=== PATIENT | male | born 1990 | race Caucasian/White ===

== ENCOUNTER 2018-07-11 09:47 | Emergency (ER) | payer OTHER ==
[2018-07-11 09:53] VITALS: BP 136/89; PULSE 75; RESP 18; TEMP 98.1
[2018-07-11] MEDS ORDERED: LIDOCAINE 1% INJ 10MG/ML (20 ML MDV) SQ STA (09:59)
--- NOTE | 2018-07-11 10:22 | ED ---
General Adult HPI - General Chief complaint: Wound/Laceration Stated complaint: [facility] - left hand laceration Time Seen by Provider: 07/11/18 09:53 Source: patient, RN notes reviewed Mode of arrival: ambulatory Limitations: no limitations - History of Present Illness Initial comments: Patient 28-year-old male presented to the emergency room today with a chief complaint of laceration to the left fifth digit. Patient does not that he was at work he was using a knife to cut apart 2 pieces of meat when the knife slipped and he did accidentally cut himself. He does admit that the blade went through the fifth digit. He states his tetanus is up-to-date. Patient states he has full range of motion. He denies any other complaints. - Related Data Previous Rx's Medication Instructions Recorded Cephalexin [Keflex] 500 mg PO Q12HR 10 Days cap 07/11/18 Allergies Allergy/AdvReac Type Severity Reaction Status Date / Time No Known Allergies Allergy Verified 07/11/18 09:52 Review of Systems ROS Statement: Those systems with pertinent positive or pertinent negative responses have been documented in the HPI. ROS Other: All systems not noted in ROS Statement are negative. Past Medical History Past Medical History: No Reported History History of Any Multi-Drug Resistant Organisms: None Reported Past Surgical History: Orthopedic Surgery Past Psychological History: No Psychological Hx Reported Smoking Status: Current every day smoker Past Alcohol Use History: None Reported Past Drug Use History: None Reported General Exam - General Exam Comments Initial Comments: General: The patient is awake and alert, in no distress, and does not appear acutely ill. . Musculoskeletal: Normal ROM, no tenderness. Strength 5/5. Sensation intact. Pulses equal bilaterally 2+. Neurological: A&O x 3. CN II-XII intact, There are no obvious motor or sensory deficits. Coordination appears grossly intact. Speech is normal. Skin: Patient does have laceration to both volar and posterior aspect of the left fifth digit. Mild venous oozing. Sensations are intact. Radial pulses 2+ . Psychiatric: Cooperative, appropriate mood & affect, normal judgment. Limitations: no limitations Course Vital Signs 07/11/18 09:50 Temperature 98.1 F Pulse Rate 75 Respiratory 18 Rate Blood Pressure 136/89 O2 Sat by Pulse 98 Oximetry Procedures - Procedures Initial comment: First laceration located to the volar aspect of the left fifth digit measured approximately 3.5 cm in total length. The skin was anesthetized with 1% lidocaine. The laceration was then cleansed with Betadine and irrigated with normal saline. The wound was inspected, and there was no evidence of injury to deep structures. No foreign body was noted in the wound. A total of 9 skin sutures were placed utilizing 4-0 nylon. Second laceration located to the posterior aspect of the left fifth digit measured approximately 2.5 cm in total length. The skin was anesthetized with 1 % lidocaine. The laceration was then cleansed with Betadine and irrigated with normal saline. The wound was inspected, and there was no evidence of injury to deep structures. No foreign body was noted in the wound. A total of 7 skin sutures were placed utilizing 4-0 nylon. Third laceration located to the volar aspect of the third distal digit measured approximately 1.5 cm in total length. The skin was anesthetized with 1% lidocaine. The laceration was then cleansed with Betadine and irrigated with normal saline. The wound was inspected, and there was no evidence of injury to deep structures. No foreign body was noted in the wound. A total of 3 skin sutures were placed utilizing 4-0 nylon. Fourth laceration located at the volar aspect of the second distal digit of the left hand measured approximately 1.5 total length. Laceration cleaned and irrigated with saline. Wound edges were approximated and closed with topical adhesive. Medical Decision Making - Medical Decision Making X-ray reviewed negative for any acute abnormality. Results discussed with the patient. Patient's wound edges were clean closed here in emergency room. Patient's tetanus is up-to-date. Will be started on antibiotic to cover for infection prophylactically. He is advised to keep area clean and return in 8- 10 days to have sutures removed. Disposition Clinical Impression: Laceration of multiple sites of hand and fingers Disposition: HOME SELF-CARE Condition: Good Instructions: Laceration (ED) Additional Instructions: Please return to the emergency room in 8-10 days to have sutures removed. Please watch for any signs of infection which may include increased pain, swelling, redness, fever or chills. Please return to emergency room for any signs of infection do occur. Please use clean soap and water over the area to prevent scabbing over your stitches. Please leave wound covered for the first 24-48 hours and then leave wound open to air. Please return to the emergency room for any other concerns. Prescriptions: Cephalexin [Keflex] 500 mg PO Q12HR 10 Days cap Is patient prescribed a controlled substance at d/c from ED?: No Referrals: None,Stated [Primary Care Provider] - 1-2 days Time of Disposition: 11:03
--- NOTE | 2018-07-11 10:34 | XR ---
EXAMINATION TYPE: XR hand complete LT , 3 VIEWS DATE OF EXAM ORDERED: 07/11/2018 HISTORY: Laceration. COMPARISON: None. FINDINGS: There is evidence of a laceration of the distal phalanx of the left third digit. No fractu re, dislocation or radiopaque foreign body is seen. IMPRESSION: LACERATION.
[2018-07-11] MEDS ORDERED: TOPICAL SKIN ADHESIVE 1 EACH AMP TOPICAL ONE (11:26)
== END 2018-07-11 11:37 | disposition home or self-care (01) ==
LOC: EC 09:47
DX: S61.217A Laceration without foreign body of left little finger without damage to nail, initial encounter (principal); S61.213A Laceration without foreign body of left middle finger without damage to nail, initial encounter; S61.211A Laceration without foreign body of left index finger without damage to nail, initial encounter; F17.200 Nicotine dependence, unspecified, uncomplicated; W26.0XXA Contact with knife, initial encounter; Y93.G3 Activity, cooking and baking; Y92.69 Other specified industrial and construction area as the place of occurrence of the external cause; Y99.0 Civilian activity done for income or pay
CPT/HCPCS: 73130; 99283; 12004; J2001

== ENCOUNTER 2018-07-20 14:03 | Emergency (ER) | payer OTHER ==
[2018-07-20 14:22] VITALS: RESP 18
[2018-07-20] MEDS ORDERED: SODIUM CHLORIDE 0.9% 1,000 ML IV STA (15:13)
[2018-07-20] MEDS ORDERED: VANCOMYCIN IV PER PHARMACY 1 EACH MISC MISCELLANE PRN (15:32)
--- NOTE | 2018-07-20 15:32 | XR ---
EXAMINATION TYPE: XR hand complete LT DATE OF EXAM: 07/20/2018 CLINICAL HISTORY: Pain and infection fifth finger. TECHNIQUE: Frontal, lateral and oblique images of the left hand are obtained. COMPARISON: Left hand x-ray 9 days ago. FINDINGS: There is no acute fracture/dislocation evident in the left hand. The joint spaces in the l eft hand remain within normal limits. No new suspicious cortical destruction or periosteal reaction is seen. There is new mild to moderate soft tissue swelling fifth finger centered at fifth proximal p halanx. IMPRESSION: New soft tissue swelling fifth finger without cortical destruction.
[2018-07-20] MEDS ORDERED: VANCOMYCIN 1,750 MG in SODIUM CHLORIDE 0.9% 500 ML 500 ML IVPB ONE (16:00)
[2018-07-20] MEDS ORDERED: PIPERACILLIN-TAZOBACTAM 3.375 GM in SODIUM CHLORIDE 0.9% 100 ML IVPB ONE (16:00)
[2018-07-20 16:20] LABS: Basophils # (A) 0.1 k/uL (0-0.2); Basophils % (A) 1 %; Eosinophils # (A) 0.3 k/uL (0-0.7); Eosinophils % (A) 3 %; HCT 43.4 % (39.0-53.0); HGB 15.1 gm/dL (13.0-17.5); Lymphocytes % (A) 23 %; MCH 31.2 pg (25.0-35.0); MCHC 34.9 g/dL (31.0-37.0); MCV 89.4 fL (80.0-100.0); Mean Platelet Volume 6.9; Monocytes # (A) 0.5 k/uL (0-1.0); Monocytes % (A) 6 %; Neutrophils # (A) 5.8 k/uL (1.3-7.7); Neutrophils % (A) 66 %; Platelet Count 229 k/uL (150-450); RBC 4.85 m/uL (4.30-5.90); RDW 13.1 % (11.5-15.5); WBC 8.9 k/uL (3.8-10.6)
[2018-07-20 16:27] LABS: ALT 29 U/L (21-72); AST 30 U/L (17-59); Albumin 4.2 g/dL (3.5-5.0); Alkaline Phosphatase 58 U/L (38-126); Anion Gap 6 mmol/L; Blood Urea Nitrogen 12 mg/dL (9-20); Carbon Dioxide 26 mmol/L (22-30); Chloride 106 mmol/L (98-107); Glucose 86 mg/dL (74-99); Potassium 3.9 mmol/L (3.5-5.1); Sodium 138 mmol/L (137-145); Total Bilirubin 0.7 mg/dL (0.2-1.3); Total Protein 7.1 g/dL (6.3-8.2)
--- NOTE | 2018-07-20 18:28 | ED ---
General Adult HPI - General Chief complaint: Wound/Laceration Stated complaint: INFECTED SUTURE Time Seen by Provider: 07/20/18 14:31 Source: patient, RN notes reviewed, old records reviewed Limitations: no limitations - History of Present Illness Initial comments: 28-year-old male patient no pertinent past medical history presents to ED for potential infection on fifth digit of left hand. Patient reports that approximately 9 days ago presents to the ER after sustaining a laceration with a knife. Patient had a laceration with a steward/stewardess club car knife that passed through the soft tissue of his fifth digit on his left hand. Patient did not have any suspected ligament or osseous involvement. The wound was closed primarily. Patient has been taking Keflex twice a day since the injury. Patient reports that the last 2 days he began to develop some erythema at the MCP joint on the flexor aspect of the fifth digit. Patient states that the erythema has no spread up to the PIP joint of the fifth digit of his left hand. Patient also reports that he had some purulent drainage from the sutures after he squeezed his finger. Patient does still have full range of motion of his finger. Patient denies any fevers or chills at home. Patient denies any nausea vomiting diarrhea at home. Patient denies other complaints. Systemic: Pt denies fatigue, myalgia, fever/chills, rash. Pt denies weakness, night sweats, weight loss. Neuro: Pt denies headache, visual disturbances, syncope or pre-syncope. HEENT: Pt denies ocular discharge or irritation, otalgia, rhinorrhea, pharyngitis or notable lymphadenopathy. Cardiopulmonary: Pt denies chest pain, SOB, heart palpitations, dyspnea on exertion. Abdominal/GI: Pt denies abdominal pain, n/v/d. : Pt denies dysuria, burning w/ urination, frequency/urgency. Denies new onset urinary or bowel incontinence. MSK: Pt denies myalgia, loss of strength or function in extremities. Neuro: Pt denies new onset weakness, paresthesias. - Related Data Previous Rx's Medication Instructions Recorded Cephalexin [Keflex] 500 mg PO Q12HR 10 Days cap 07/11/18 Amoxicillin/Potassium Clav 1 each PO Q12HR #20 tab 07/20/18 [Augmentin 875-125 Tablet] Clindamycin [Cleocin] 450 mg PO Q6H 10 Days capsule 07/20/18 Allergies Allergy/AdvReac Type Severity Reaction Status Date / Time No Known Allergies Allergy Verified 07/20/18 14:22 Review of Systems ROS Statement: Those systems with pertinent positive or pertinent negative responses have been documented in the HPI. ROS Other: All systems not noted in ROS Statement are negative. Past Medical History Past Medical History: No Reported History History of Any Multi-Drug Resistant Organisms: None Reported Past Surgical History: Orthopedic Surgery Past Psychological History: No Psychological Hx Reported Smoking Status: Current every day smoker Past Alcohol Use History: None Reported Past Drug Use History: None Reported General Exam - General Exam Comments Initial Comments: Constitutional: NAD, AOX3, Pt has pleasant affect. HEENT: NC/AT, trachea midline, neck supple, no lymphadenopathy. Posterior pharynx non erythematous, without exudates. External ears appear normal, without discharge. Mucous membranes moist. Eyes PERRLA, EOM intact. There is no scleral icterus. No pallor noted. Cardiopulmonary: RRR, no murmurs, rubs or gallops, no JVD noted. Lungs CTAB in anterior and posterior humphrey. No peripheral edema. Abdominal exam: Abdomen soft and non-distended. Abdomen non-tender to palpation in all 4 quadrants. Bowel sounds active in LLQ. No hepatosplenomegaly. No ecchymosis Neuro: CN II-XII grossly intact. No nuchal rigidity. MSK: Mild amount of erythema noted at the flexor aspect of the MCP joint of the fifth digit of his left hand. Patient has a mild amount of erythema that extends up to the PIP joint of the fifth digit of his left hand. Patient does still have full range of motion of digit. Patient still has sensation of digit. Sutures intact. Patient does not have any tenderness proximal to the MCP joint. No purulent drainage expressed with palpation. Patient not have pain with passive extension, no percussion tenderness, no flexion posture. No posterior calf tenderness bilaterally, homans sign negative bilaterally. Posterior tibialis and radial pulse +2 bilaterally. Sensation intact in upper and lower extremities. Full active ROM in upper and lower extremities, 5/5 stregnth. Limitations: no limitations Course Vital Signs 07/20/18 07/20/18 14:19 18:46 Temperature 98.1 F 99.1 F Pulse Rate 69 74 Respiratory 18 18 Rate Blood Pressure 124/86 129/80 O2 Sat by Pulse 97 96 Oximetry Medical Decision Making - Medical Decision Making 28-year-old male patient no pertinent past medical history presents to ED for potential infection on fifth digit of left hand. Patient reports that approximately 9 days ago presents to the ER after sustaining a laceration with a knife. Patient had a laceration with a steward/stewardess club car knife that passed through the soft tissue of his fifth digit on his left hand. Patient did not have any suspected ligament or osseous involvement. The wound was closed primarily. Patient has been taking Keflex twice a day since the injury. Patient reports that the last 2 days he began to develop some erythema at the MCP joint on the flexor aspect of the fifth digit. Patient states that the erythema has no spread up to the PIP joint of the fifth digit of his left hand. Patient also reports that he had some purulent drainage from the sutures after he squeezed his finger. Pt denies all other symptoms. Pt VSS, afebrile. Laboratory investigations revealed nonpresent CBC, CMP. Blood cultures were obtained. Lactic acid is within normal limits. Plain film of left hand displayed new soft tissue swelling fifth digit without cortical distraction. Patient was started on vancomycin and Zosyn with plan to admit patient for possible early flexor tenosynovitis. Patient stated that he cannot be admitted to hospital due to childcare lapse. Patient received approximately three quarters of dose of vancomycin and Zosyn. Patient was strongly urged to stay in hospital, risks of patient declined treatment included loss of limb or . Patient verbalized understanding. Patient does state that he'll return to ED after his childcare is situated. Patient was prescribed Augmentin and clindamycin. Explained to patient that this is a suboptimal treatment, patient was understanding. Patient was again urged to stay in ER, patient once again declined. Pt referred to orthopedics. Patient signed out the hospital AMA. Case discussed and patient seen by Dr. Cook. - Lab Data Result diagrams: 07/20/18 15:15 07/20/18 15:15 Lab Results 07/20/18 07/20/18 07/20/18 Range/Units 15:15 15:15 15:15 WBC 8.9 (3.8-10.6) k/uL RBC 4.85 (4.30-5.90) m/uL Hgb 15.1 (13.0-17.5) gm/dL Hct 43.4 (39.0-53.0) % MCV 89.4 (80.0-100.0) fL MCH 31.2 (25.0-35.0) pg MCHC 34.9 (31.0-37.0) g/dL RDW 13.1 (11.5-15.5) % Plt Count 229 (150-450) k/uL Neutrophils % 66 % Lymphocytes % 23 % Monocytes % 6 % Eosinophils % 3 % Basophils % 1 % Neutrophils # 5.8 (1.3-7.7) k/uL Lymphocytes # 2.0 (1.0-4.8) k/uL Monocytes # 0.5 (0-1.0) k/uL Eosinophils # 0.3 (0-0.7) k/uL Basophils # 0.1 (0-0.2) k/uL Sodium 138 (137-145) mmol/L Potassium 3.9 (3.5-5.1) mmol/L Chloride 106 (98-107) mmol/L Carbon Dioxide 26 (22-30) mmol/L Anion Gap 6 mmol/L BUN 12 (9-20) mg/dL Creatinine 1.01 (0.66-1.25) mg/dL Est GFR (CKD-EPI)AfAm >90 (>60 ml/min/1.73 sqM) Est GFR (CKD-EPI)NonAf >90 (>60 ml/min/1.73 sqM) Glucose 86 (74-99) mg/dL Plasma Lactic Acid Andrew 1.0 (0.7-2.0) mmol/L Calcium 9.0 (8.4-10.2) mg/dL Total Bilirubin 0.7 (0.2-1.3) mg/dL AST 30 (17-59) U/L ALT 29 (21-72) U/L Alkaline Phosphatase 58 (38-126) U/L Total Protein 7.1 (6.3-8.2) g/dL Albumin 4.2 (3.5-5.0) g/dL Disposition Clinical Impression: Finger infection Disposition: Left Against Medical Advice Condition: Serious Instructions (If sedation given, give patient instructions): Wound Infection ( ED) Prescriptions: Amoxicillin/Potassium Clav [Augmentin 875-125 Tablet] 1 each PO Q12HR #20 tab Clindamycin [Cleocin] 450 mg PO Q6H 10 Days capsule Is patient prescribed a controlled substance at d/c from ED?: No Referrals: None,Stated [Primary Care Provider] - 1-2 days Isreal Sanchez MD [STAFF PHYSICIAN] - 1-2 days
[2018-07-20 18:48] VITALS: BP 129/80; PULSE 74; TEMP 99.1
[2018-07-21] MEDS ORDERED: PIPERACILLIN-TAZOBACTAM 3.375 GM in SODIUM CHLORIDE 0.9% 100 ML IVPB SCH ×2
[2018-07-21] MEDS ORDERED: VANCOMYCIN 1,750 MG in SODIUM CHLORIDE 0.9% 500 ML 500 ML IVPB SCH ×2
== END 2018-07-20 19:10 | disposition left against medical advice (07) ==
LOC: EC 14:03
DX: T81.41XA Infection following a procedure, superficial incisional surgical site, initial encounter (principal); F17.200 Nicotine dependence, unspecified, uncomplicated
CPT/HCPCS: 36415; 80053; 83605; 85025; 87040; 73130; 99284; 96365 ×2; 96366 ×4; 96361; J2543; J3370

== ENCOUNTER 2018-07-21 02:53 | Emergency (ER) | payer OTHER ==
[2018-07-21 03:02] VITALS: BP 167/92; PULSE 73; RESP 18; TEMP 98.3
[2018-07-21] MEDS ORDERED: CEPHALEXIN 500MG STARTER PACK 4 CAP BTL PO STA (03:36)
[2018-07-21] MEDS ORDERED: SULFAMETH-TMP DS STARTER PACK 2 TAB BTL PO STA (03:36)
--- NOTE | 2018-07-21 03:36 | ED ---
Wound/Laceration HPI - General Chief Complaint: Wound/Laceration Stated Complaint: Infection Time Seen by Provider: 07/21/18 03:05 Source: patient Mode of arrival: ambulatory Limitations: no limitations - History of Present Illness Initial Comments: 28-year-old male patient presents to the emergency department today for evaluation of swelling and redness to the left fifth finger. Patient did sustain a laceration to the finger 10 days ago did have sutures placed. Patient presented here earlier today for evaluation, plan was to admit for IV antibiotics however he had social issues that he had to resolved prior to being admitted. He presented back for further evaluation this evening. Patient denies any significant pain to the site. Patient states he did have some purulent drainage from the area earlier in the day. Patient was told to have the sutures removed in 10 days, sutures are still in place. He denies any fevers or chills with this. Denies any nausea or vomiting. Denies any difficulty with range of motion to the finger or hand. Patient denies any headache, neck pain, back pain, chest pain, shortness of breath, dizziness, weakness, abdominal pain, nausea, vomiting, or difficulties with bowel movements or urination. - Related Data Previous Rx's Medication Instructions Recorded Cephalexin [Keflex] 500 mg PO Q6H #40 cap 07/21/18 Sulfamethoxazole/Trimethoprim 1 each PO BID #20 tablet 07/21/18 [Bactrim DS 800-160 mg] Allergies Allergy/AdvReac Type Severity Reaction Status Date / Time No Known Allergies Allergy Verified 07/21/18 03:01 Review of Systems ROS Statement: Those systems with pertinent positive or pertinent negative responses have been documented in the HPI. ROS Other: All systems not noted in ROS Statement are negative. Past Medical History Past Medical History: No Reported History History of Any Multi-Drug Resistant Organisms: None Reported Past Surgical History: Orthopedic Surgery Past Psychological History: No Psychological Hx Reported Smoking Status: Current every day smoker Past Alcohol Use History: None Reported Past Drug Use History: None Reported General Exam Limitations: no limitations General appearance: alert, in no apparent distress, other (This is a well- developed, well-nourished adult male patient in no acute distress. Vital signs upon presentation are temperature 98.3F, pulse 73, respirations 18, blood pressure 167/92, pulse ox 97% on room air.) Eye exam: Present: normal appearance, PERRL, EOMI. Absent: scleral icterus, conjunctival injection, periorbital swelling ENT exam: Present: normal exam, normal oropharynx Respiratory exam: Present: normal lung sounds bilaterally. Absent: respiratory distress, wheezes, rales, rhonchi, stridor Cardiovascular Exam: Present: regular rate, normal rhythm, normal heart sounds. Absent: systolic murmur, diastolic murmur, rubs, gallop, clicks Extremities exam: Present: full ROM, normal capillary refill, other (Patient has evidence of swelling and erythema to the area surrounding the proximal phalanx of the fifth digit and fifth MCP joints on the left hand. Patient does have sutures in place, lacerations are well approximated. See no evidence of fairly drainage at this time. Swelling extends up to just past the proximal interphalangeal joint. Does not extend to the tip of the finger. Patient is nontender. Exhibits full range of motion with without resistance. No pain with passive extension.). Absent: normal inspection, tenderness, pedal edema, joint swelling, calf tenderness Neurological exam: Present: alert, oriented X3, CN II-XII intact Psychiatric exam: Present: normal affect, normal mood Skin exam: Present: warm, dry, intact, normal color. Absent: rash Course Vital Signs 07/21/18 02:58 Temperature 98.3 F Pulse Rate 73 Respiratory 18 Rate Blood Pressure 167/92 O2 Sat by Pulse 97 Oximetry Medical Decision Making - Medical Decision Making 28-year-old male patient presents to the emergency department for recheck of a wound to the left fifth digit. Physical examination did reveal some soft tissue swelling to the left fifth digit over the distal phalanx and the MCP joint. No evidence of purulent drainage at this time. Patient does have full range of motion with without resistance. No pain with passive extension. No tenderness to the tendon sheath. Patient is afebrile, vital signs are stable. Patient symptoms are consistent with cellulitis. We discharged at this time to complete prescriptions of Bactrim and Keflex. He is instructed to follow-up with the hand surgeon for recheck tomorrow. Return parameters were discussed at great length. Patient verbalizes understanding and agrees with this plan. Disposition Clinical Impression: Cellulitis of finger of left hand Disposition: HOME SELF-CARE Condition: Good Instructions (If sedation given, give patient instructions): Cellulitis (ED) Additional Instructions: Return immediately if the swelling extends to the end of the finger, if you develop pain to the finger, if you develop numbness or tingling, fever, or chills. Complete antibiotic prescriptions in full. Follow-up with the hand specialist for recheck tomorrow. Return to the emergency department immediately for any new, worsening, or concerning symptoms. Prescriptions: Cephalexin [Keflex] 500 mg PO Q6H #40 cap Sulfamethoxazole/Trimethoprim [Bactrim DS 800-160 mg] 1 each PO BID #20 tablet Is patient prescribed a controlled substance at d/c from ED?: No Referrals: Raj Jules DO [Doctor of Osteopathic Medicine] - 1-2 days Time of Disposition: 03:36
== END 2018-07-21 03:56 | disposition home or self-care (01) ==
LOC: EC 02:53
DX: L03.012 Cellulitis of left finger (principal); F17.200 Nicotine dependence, unspecified, uncomplicated
CPT/HCPCS: 99283